=== PATIENT | female | born 1980 | race Caucasian/White ===

== ENCOUNTER 2016-07-11 14:11 | Emergency (ER) | payer OTHER ==
[~2016-07-11] VITALS: Ht 162.6 cm; Wt 57.2 kg
[2016-07-11 14:20] VITALS: BP 104/70
--- NOTE | 2016-07-11 14:38 | ED EYE COMPLAINT ---
History of Present Illness General Chief Complaint: Eye Problems Stated Complaint: LEFT EYE SWOLLEN/RED Source: patient, old records Exam Limitations: no limitations Vital Signs & Intake/Output Vital Signs & Intake/Output Vital Signs Date Time Temp Pulse Resp B/P Pulse O2 O2 Flow FiO2 Ox Delivery Rate 07/11 1420 97.1 66 20 104/70 97 Room Air Allergies Coded Allergies: No Known Allergies (07/11/16) Reconcile Medications Sulfamethoxazole/Trimethoprim (Bactrim Ds Tablet) 800 MG-160 MG TABLET 1 TAB PO BID PERIORBITAL CELLULITIS Triage Note: LEFT EYE SWELLING WITH BLURRY VISION SINCE SATURDAY, GETTING WORSE. SWELLING NOW GOING DOWN FACE. STATES SHE PHYSICALLY DOESN'T FEEL WELL. Triage Nurses Notes Reviewed? yes Onset: Abrupt Duration: day(s): (4), constant Timing: recent history Injury Environment: home Severity: moderate Severity Numbers: 6 No Modifying Factors: none Left Eye Associated Symptoms: pain, orbital redness Right Eye Associated Symptoms: denies : No Patient currently breastfeeds: No HPI: This is a 35-year-old female presents emergency room complaining of a four-day history of left lower eyelid swelling redness pain has been getting progressively worse despite using erythromycin ointment. The patient denies any known injury or trauma however states that has been getting larger and today she passed out secondary to her symptoms. Nallely admits to feeling unwell secondary to her symptoms she denies nausea vomiting fevers or chills. Pain is worse with palpation, there are no other modifying factors or associated symptoms otherwise. Patient denies foreign body sensation to eye. Patient denies any vision loss however reports that her vision has been blurry in the left eye she does work contact lenses. Past History Travel History Traveled to [place] past 21 day No Medical History Any Pertinent Medical History? none Surgical History Surgical History: none Psychosocial History What is your primary language Angolan Tobacco Use: Never used ETOH Use: occasional use Illicit Drug Use: denies illicit drug use Family History Hx Contributory? No Review of Systems Review of Systems Constitutional: Reports: see HPI. All Other Systems: Reviewed and Negative Comments Review of systems: See HPI, All other systems negative. Constitutional, no chills no fever, no malaise HEENT: No visual changes no sore throat no congestion Cardiovascular: No chest pain , no palpitation Skin, see HPI Respiratory: No dyspnea no cough no sputum GI: No nausea no vomiting, no diarrhea, : No dysuria No hematuria Muscle skeletal: No joint pain, no back pain, no neck pain, Neurologic: No numbness no headache Psych: No stress Heme/endocrine: No bruising no bleeding Immunology: No lymphadenopathy Physical Exam General Appearance: well developed/nourished, no apparent distress, alert General Inspection: periorbital erythema (LATERAL LOWER LID), periorbital swelling (LATERAL LOWER LID) Eyelid: normal inspection, everted for exam Conjunctiva/Sclera: normal inspection Cornea: normal inspection EOM: intact Pupil: normal accommodation, normal pupil, PERRL General Inspection: normal inspection Eyelid: normal inspection Conjunctiva/Sclera: normal inspection Cornea: normal inspection EOM: intact Pupil: normal accommodation, normal pupil, PERRL Physical Exam Comments: Well-developed well-nourished patient in no apparent distress. HEENT: Atraumatic, extraocular motion intact no evidence of entrapment there is a small localized area of swelling, tenderness erythema noted to the left lateral lower eyelid, there is no surrounding periorbital erythema, crepitus tenderness otherwise Neck: Supple, FROM, Back: FROM Cardiovascular: Regular rate and rhythms no murmurs Respiratory: No respiratory distress. Patient speaking in full complete sentences. Breath sounds clear to auscultation bilaterally: NO W/R/R Extremities: full range of motion Neuro: Alert and oriented x3 Skin: Warm & dry;No appreciable rash on exposed skin Psych: Mood affect normal, normal memory normal judgment. Progress Differential Diagnosis: corneal abrasion, corneal foreign body, conjunctivitis, detached retina, PERIORBITAL CELLULITIS OR ORBITAL CELLULITIS, ABSCESS Plan of Care: Orders Procedure Date/time Status Add-on Test (ER Only) 07/11 1438 Active HUMAN BETA HCG SCREEN 07/11 1435 Complete CBC WITHOUT DIFFERENTIAL 07/11 1430 Complete BASIC METABOLIC PANEL 07/11 1430 Complete Laboratory Tests 07/11/16 1435: Anion Gap 9, Estimated GFR > 60, BUN/Creatinine Ratio 16.7, Glucose 107 H, Calcium 9.3, Total Beta HCG NEGATIVE, CBC w Diff NO MAN DIFF REQ, RBC 4.13 L, MCV 91.6, MCH 31.5 H, RDW 13.4, MPV 7.9, Gran % 58.8, Lymphocytes % 31.9, Monocytes % 8.4, Eosinophils % 0.4, Basophils % 0.5, Absolute Granulocytes 3.5, Absolute Lymphocytes 1.9, Absolute Monocytes 0.5, Absolute Eosinophils 0, Absolute Basophils 0, PUBS MCHC 34.4 pATIENT MEDICATED WITH iv FLUIDS uNASYN IV 1.5 g, labs ordered CAT scan ordered case discussed with Dr. MONTEIRO I discussed with the patient at length all of their results. Prescription for Bactrim provided advised to continue with Keflex. I had an extensive conversation regarding need for close follow up with their primary care physician this week as well as return precautions. I answered all of their questions, they feel comfortable with the plan and follow-up care. (RITA LAY,SEJAL) Diagnostic Imaging: Viewed by Me: CT Scan. Discussed w/RAD: CT Scan. Radiology Impression: PATIENT: NALLELY BOWLES PRESENT AGE: 35 PATIENT ACCOUNT NO: [id number] : 81 LOCATION: [facility] ORDERING PHYSICIAN: SEJAL LAY SERVICE DATE: 07/11/16 EXAM TYPE: CAT - CT ORBITS W IV CONTRAST EXAMINATION: CT ORBIT WITH CONTRAST CLINICAL INFORMATION: Left eye redness and swelling. Evaluate for orbital abscess versus orbital cellulitis. COMPARISON: No relevant prior imaging available. TECHNIQUE: Recruit Instructor images were obtained. CT acquisition of the orbits were obtained after the intravenous administration of 94 mL Optiray 320. No adverse contrast reaction was reported. Data was reformatted into multiplanar images at the acquisition workstation. DLP: 224.24 mGy-cm FINDINGS: There is mild asymmetric stranding within the left periorbital soft tissues. There is no drainable fluid collection. No abnormal inflammation or collection is visualized within the retrobulbar fat. Extraocular muscles are normal. Globes are symmetric. The lamina papyracea and orbital floors are intact. There is no active paranasal sinus disease and the major paranasal sinus drainage pathways are widely patent. The nasal septum deviates to the right. Limited visualization of intracranial structures reveals no abnormal finding. Specifically there is no midline shift or hydrocephalus. There is no mastoid or middle ear effusion. The temporomandibular joints are symmetric. Visualized bank operations officer spaces are symmetric. Parapharyngeal and retromaxillary fat is preserved. IMPRESSION: Mild asymmetric stranding within the left periorbital soft tissues. No drainable fluid collection. No abnormal inflammation or collection within the retrobulbar fat. There is no active paranasal sinus disease and the major paranasal sinus drainage pathways are widely patent. DICTATED BY: GOLD APPLE MD DATE/ TIME DICTATED:07/11/161623 GRINDER SET UP OPERATOR CENTERLESS:CHEL DATE/TIME TRANSCRIBED: 07/11/161623 CONFIDENTIAL, DO NOT COPY WITHOUT APPROPRIATE AUTHORIZATION. < Electronically signed in Other Vendor System> SIGNED BY: GOLD APPLE MD 07/11/16 163 Departure Departure Time of Disposition: 1636 Disposition: HOME OR SELF CARE Condition: Stable Clinical Impression Primary Impression: Periorbital cellulitis of left eye Referrals: PATIENT HAS NO PRIMARY CARE DR (PCP/Family) Additional Instructions: continue taking the keflex as directed, bactrim as discussed. cool compresses as needed. tylenol or motrin every 4-6 hours as needed. return with any concerns Departure Forms: Customer Survey General Discharge Information Prescriptions: Current Visit Scripts Sulfamethoxazole/Trimethoprim (Bactrim Ds Tablet) 1 TAB PO BID #14 TAB
[2016-07-11 14:43] LABS: ABSOLUTE BASOPHIL COUNT 0 /CUMM (0.0-0.2); ABSOLUTE EOSINOPHIL COUNT 0 /CUMM (0.0-0.7); ABSOLUTE GRANULOCYTE CT 3.5 /CUMM (1.4-6.5); ABSOLUTE LYMPH COUNT 1.9 /CUMM (1.2-3.4); ABSOLUTE MONOCYTE COUNT 0.5 /CUMM (0.10-0.60); BASOPHIL % 0.5 % (0.0-2.0); EOSINOPHIL % 0.4 % (0-5); GRANULOCYTE % 58.8 % (42.2-75.2); HEMATOCRIT 37.8 % (37-47); MEAN CORPUSCULAR HGB 31.5 PG (27.0-31.0); MEAN CORPUSCULAR HGB CONC 34.4 G/DL (33.0-37.0); MEAN CORPUSCULAR VOLUME 91.6 FL (81.0-99.0); MEAN PLATELET VOLUME 7.9 FL (7.4-10.4); PLATELET COUNT 241 /CUMM (130-400); RBC DISTRIBUTION WIDTH 13.4 % (11.5-14.5); RED BLOOD CELL CT 4.13 /CUMM (4.20-5.40); WHITE BLOOD CELL COUNT 5.9 /CUMM (4.8-10.8)
--- NOTE | 2016-07-11 16:32 | CT SCAN REPORT ---
EXAMINATION: CT ORBIT WITH CONTRAST CLINICAL INFORMATION: Left eye redness and swelling. Evaluate for orbital abscess versus orbital cellulitis. COMPARISON: No relevant prior imaging available. TECHNIQUE: Bark Skinner images were obtained. CT acquisition of the orbits were obtained after the intravenous administration of 94 mL Optiray 320. No adverse contrast reaction was reported. Data was reformatted into multiplanar images at the acquisition workstation. DLP: 224.24 mGy-cm FINDINGS: There is mild asymmetric stranding within the left periorbital soft tissues. There is no drainable fluid collection. No abnormal inflammation or collection is visualized within the retrobulbar fat. Extraocular muscles are normal. Globes are symmetric. The lamina papyracea and orbital floors are intact. There is no active paranasal sinus disease and the major paranasal sinus drainage pathways are widely patent. The nasal septum deviates to the right. Limited visualization of intracranial structures reveals no abnormal finding. Specifically there is no midline shift or hydrocephalus. There is no mastoid or middle ear effusion. The temporomandibular joints are symmetric. Visualized supervisor scenic arts spaces are symmetric. Parapharyngeal and retromaxillary fat is preserved. IMPRESSION: Mild asymmetric stranding within the left periorbital soft tissues. No drainable fluid collection. No abnormal inflammation or collection within the retrobulbar fat. There is no active paranasal sinus disease and the major paranasal sinus drainage pathways are widely patent.
[2016-07-11] MEDS ORDERED: BACTRIM DS TAB1 EACH PO (16:38)
== END 2016-07-11 16:45 ==
LOC: ERH 14:11
PROVIDERS: Physician Assistant Medical
DX: H05.012 Cellulitis of left orbit (principal)
CPT/HCPCS: 96374